=== PATIENT | female | born 1955 | race Caucasian/White ===

== ENCOUNTER 2019-02-02 21:41 | Emergency (ER) | payer MEDICAID ==
[~2019-02-02] VITALS: Ht 152.4 cm; Wt 58.0 kg
[~2019-02-02 21:41] MED LIST: ALBU8HFA PO; ATOR10TA87 PO; CETI10CA PO; CHOL100046 PO; CLOP75TA35 PO; DILT180C53 PO; LORA1TAB PO; MECL12.5 PO; METO100T7 PO; MOME13HF INH; NITR0.4T48 SL; OMEP20CA10 PO; PHE12.5T PO; PRED50TA PO; PROM25TA14 PO; TIZA4CAP6 PO; [UNRECOGNIZED DRUG - CODE] PO
--- NOTE | 2019-02-03 02:13 | NUR ---
Headache started yesterday morning at 1100. It has intensified. Started left frontal, now whole left side, nausea, vertigo and eyes feel like she is looking through wax paper. She said "it sibley." Tylenol and ibuprofen.
[2019-02-03] MEDS ORDERED: ketorolac tromethamine 15mg/ml inj. IM ONE (02:40)
[2019-02-03] MEDS ORDERED: proCHLORperazine 10mg tablet PO ONE (02:40)
[2019-02-03] MEDS ORDERED: diphenhydrAMINE 25mg capsule PO ONE (02:40)
[2019-02-03 02:51] VITALS: BP 133/74
== END 2019-02-03 02:52 | disposition home or self-care (01) ==
LOC: ER 21:42
DX: G43.909 Migraine, unspecified, not intractable, without status migrainosus (principal); I25.10 Atherosclerotic heart disease of native coronary artery without angina pectoris; I10 Essential (primary) hypertension; J44.9 Chronic obstructive pulmonary disease, unspecified; G89.29 Other chronic pain; Z98.890 Other specified postprocedural states; Z88.6 Allergy status to analgesic agent; Z88.8 Allergy status to other drugs, medicaments and biological substances; Z79.899 Other long term (current) drug therapy
CPT/HCPCS: 96372; 99283; J1885; Q0163; Q0164

== ENCOUNTER 2019-10-15 08:30 | Emergency (ER) | payer MEDICAID ==
[~2019-10-15] VITALS: Ht 152.4 cm; Wt 58.6 kg
[~2019-10-15 08:30] MED LIST changes: +OMEP-297 PO; -OMEP20CA10 PO; -PHE12.5T PO; +PROM12.510 PO
[2019-10-15 09:33] LABS: BASOPHILS % (AUTO) 0.6 % (0-1); EOSINOPHILS # (AUTO) 0.2 X10'3 (0-0.9); EOSINOPHILS % (AUTO) 3.1 % (0-6); HEMOGLOBIN 13.7 g/dl (12.0-16.0); LYMPHOCYTES # (AUTO) 2.4 X10'3 (1.1-4.8); LYMPHOCYTES % (AUTO) 34.4 % (21-51); MEAN CORPUSCULAR HEMOGLOBIN 27.4 PG (27.0-31.0); MEAN CORPUSCULAR HGB CONC 33.3 g/dL (33.0-36.5); MEAN CORPUSCULAR VOLUME 82.4 FL (78-98); MEAN PLATELET VOLUME 8.5 FL (7.4-10.4); MONOCYTES # (AUTO) 0.7 X10'3 (0-0.9); MONOCYTES % (AUTO) 9.4 % (2-12); NEUTROPHILS # (AUTO) 3.7 X10'3 (1.8-7.7); NEUTROPHILS % (AUTO) 52.5 % (42-75); PLATELET COUNT 283 X10'3 (140-440); RED BLOOD COUNT 4.98 X10'6 (4.20-5.60); RED CELL DISTRIBUTION WIDTH 14.4 % (11.5-14.5); WHITE BLOOD COUNT 7.1 X10'3 (4.5-11.0)
[2019-10-15 09:41] LABS: ALANINE AMINOTRANSFERASE 15 U/L (12-78); ALBUMIN 3.7 G/DL (3.4-5.0); ALBUMIN/GLOBULIN RATIO 1.1 (1.1-1.5); ALKALINE PHOSPHATASE 106 IU/L (46-116); ANION GAP 5 (8-16); ASPARTATE AMINO TRANSFERASE 15 U/L (10-37); BILIRUBIN,TOTAL 0.3 MG/DL (0.1-1.0); BLOOD UREA NITROGEN 8 MG/DL (7-18); CALCIUM 9.2 MG/DL (8.5-10.1); CHLORIDE 103 MMOL/L (99-107); CREATININE 0.89 MG/DL (0.40-0.90); GLUCOSE 120 MG/DL (70-104); POTASSIUM 3.8 MMOL/L (3.5-5.1); SODIUM 138 MMOL/L (135-145); TOTAL CARBON DIOXIDE 30.4 MMOL/L (24-32); TOTAL PROTEIN 7.1 G/DL (6.4-8.2); eGFR 64 ML/MIN
[2019-10-15] MEDS ORDERED: levoFLOXACIN 750MG TABLET PO ONE (10:05)
[2019-10-15] MEDS ORDERED: methylPREDNISolone sod succ 125mg/2ml vial IV ONE ×2 (10:05→10:25)
[2019-10-15] MEDS ORDERED: PRED20TA PO (10:06)
[2019-10-15] MEDS ORDERED: LEVO500T2 PO (10:06)
[2019-10-15] MEDS ORDERED: ALB0.5UD IH (10:06)
[2019-10-15] MEDS ORDERED: methylPREDNISolone sod succ 125mg/2ml vial IM ONE (10:25)
[2019-10-15 10:31] VITALS: BP 121/66
== END 2019-10-15 10:32 | disposition home or self-care (01) ==
LOC: ER 08:31
DX: J44.1 Chronic obstructive pulmonary disease with (acute) exacerbation (principal); I25.10 Atherosclerotic heart disease of native coronary artery without angina pectoris; I10 Essential (primary) hypertension; G89.29 Other chronic pain; Z98.890 Other specified postprocedural states; Z88.6 Allergy status to analgesic agent; Z88.8 Allergy status to other drugs, medicaments and biological substances; Z79.899 Other long term (current) drug therapy
CPT/HCPCS: 36415; 71045; 80053; 84484; 85025; 93005; 96372; 99284; J2930

== ENCOUNTER 2020-07-30 14:27 | Emergency (ER) | payer MEDICAID ==
[~2020-07-30] VITALS: Ht 152.4 cm; Wt 53.6 kg
[~2020-07-30 14:27] MED LIST changes: -OMEP-297 PO; +OMEP20CA15 PO
[2020-07-30] MEDS ORDERED: albuterol 2.5 MG/3 ML nebule CONTNEB PRN (16:05)
[2020-07-30 16:27] LABS: BASOPHILS % (AUTO) 0.3 % (0-1); EOSINOPHILS % (AUTO) 0.2 % (0-6); HEMATOCRIT 43.5 % (35.0-45.0); HEMOGLOBIN 14.1 g/dl (12.0-16.0); LYMPHOCYTES # (AUTO) 1.1 X10'3 (1.1-4.8); LYMPHOCYTES % (AUTO) 8.5 % (21-51); MEAN CORPUSCULAR HEMOGLOBIN 26.7 PG (27.0-31.0); MEAN CORPUSCULAR HGB CONC 32.4 g/dL (33.0-36.5); MEAN CORPUSCULAR VOLUME 82.6 FL (78-98); MEAN PLATELET VOLUME 7.6 FL (7.4-10.4); MONOCYTES # (AUTO) 0.3 X10'3 (0-0.9); MONOCYTES % (AUTO) 2.1 % (2-12); NEUTROPHILS # (AUTO) 11.4 X10'3 (1.8-7.7); NEUTROPHILS % (AUTO) 88.9 % (42-75); PLATELET COUNT 336 X10'3 (140-440); RED BLOOD COUNT 5.26 X10'6 (4.20-5.60); RED CELL DISTRIBUTION WIDTH 14.5 % (11.5-14.5); WHITE BLOOD COUNT 12.8 X10'3 (4.5-11.0)
--- NOTE | 2020-07-30 16:36 | NUR ---
DR. ARECHIGA AT BEDSIDE.
[2020-07-30] MEDS ORDERED: predniSONE 20 mg tablet PO ONE (16:40)
[2020-07-30] MEDS ORDERED: azithromycin 250mg tablet PO ONE (16:40)
[2020-07-30] MEDS ORDERED: AZIT-63 PO (16:42)
[2020-07-30] MEDS ORDERED: PRED20TA PO (16:42)
[2020-07-30 16:45] LABS: ALANINE AMINOTRANSFERASE 31 U/L (12-78); ALBUMIN 3.7 G/DL (3.4-5.0); ALKALINE PHOSPHATASE 117 IU/L (46-116); ANION GAP 7 (8-16); ASPARTATE AMINO TRANSFERASE 37 U/L (10-37); BILIRUBIN,TOTAL 0.3 MG/DL (0.1-1.0); BLOOD UREA NITROGEN 14 MG/DL (7-18); BUN/CREATININE RATIO 14.6 (6.6-38.0); CALCIUM 9.2 MG/DL (8.5-10.1); CHLORIDE 104 MMOL/L (99-107); CREATININE 0.96 MG/DL (0.40-0.90); GLUCOSE 126 MG/DL (70-104); POTASSIUM 4.6 MMOL/L (3.5-5.1); SODIUM 139 MMOL/L (135-145); TOTAL CARBON DIOXIDE 28.5 MMOL/L (24-32); TOTAL PROTEIN 7.4 G/DL (6.4-8.2); eGFR 59 ML/MIN
[2020-07-30 17:21] VITALS: BP 106/63
== END 2020-07-30 17:22 | disposition home or self-care (01) ==
LOC: ER 14:27
DX: J44.9 Chronic obstructive pulmonary disease, unspecified (principal); R06.02 Shortness of breath; I25.10 Atherosclerotic heart disease of native coronary artery without angina pectoris; I10 Essential (primary) hypertension; G89.29 Other chronic pain; Z86.69 Personal history of other diseases of the nervous system and sense organs; Z98.890 Other specified postprocedural states; Z88.8 Allergy status to other drugs, medicaments and biological substances; Z79.2 Long term (current) use of antibiotics; Z79.899 Other long term (current) drug therapy
CPT/HCPCS: 36415; 71045; 80053; 85025; 93005; 94640; 94644; 99285; J7512; 94760

== ENCOUNTER 2020-09-11 14:06 | Emergency (ER) | payer MEDICAID ==
[~2020-09-11] VITALS: Ht 152.4 cm; Wt 53.6 kg
[2020-09-11 14:17] VITALS: BP 147/79
[2020-09-11] MEDS ORDERED: ipratropium/albuterol 3ml nebule NEB ONE (14:30)
[2020-09-11 15:01] LABS: BASOPHILS # (AUTO) 0.2 X10'3 (0-0.2); BASOPHILS % (AUTO) 1.1 % (0-1); EOSINOPHILS # (AUTO) 0.3 X10'3 (0-0.9); EOSINOPHILS % (AUTO) 1.7 % (0-6); HEMATOCRIT 47.5 % (35.0-45.0); HEMOGLOBIN 15.7 g/dl (12.0-16.0); LYMPHOCYTES % (AUTO) 17.9 % (21-51); MEAN CORPUSCULAR HEMOGLOBIN 27.3 PG (27.0-31.0); MEAN CORPUSCULAR VOLUME 82.9 FL (78-98); MEAN PLATELET VOLUME 7.5 FL (7.4-10.4); MONOCYTES # (AUTO) 1.3 X10'3 (0-0.9); MONOCYTES % (AUTO) 7.9 % (2-12); NEUTROPHILS # (AUTO) 12.1 X10'3 (1.8-7.7); NEUTROPHILS % (AUTO) 71.4 % (42-75); PLATELET COUNT 333 X10'3 (140-440); RED BLOOD COUNT 5.73 X10'6 (4.20-5.60); RED CELL DISTRIBUTION WIDTH 14.9 % (11.5-14.5)
[2020-09-11 15:15] LABS: ALANINE AMINOTRANSFERASE 11 U/L (12-78); ALBUMIN/GLOBULIN RATIO 1.1 (1.1-1.5); ALKALINE PHOSPHATASE 117 IU/L (46-116); ANION GAP 5 (8-16); ASPARTATE AMINO TRANSFERASE 14 U/L (10-37); BILIRUBIN,TOTAL 0.3 MG/DL (0.1-1.0); BLOOD UREA NITROGEN 13 MG/DL (7-18); BUN/CREATININE RATIO 13.8 (6.6-38.0); CALCIUM 9.4 MG/DL (8.5-10.1); CHLORIDE 104 MMOL/L (99-107); CREATININE 0.94 MG/DL (0.40-0.90); GLUCOSE 90 MG/DL (70-104); POTASSIUM 4.2 MMOL/L (3.5-5.1); SODIUM 140 MMOL/L (135-145); TOTAL CARBON DIOXIDE 30.6 MMOL/L (24-32); TOTAL PROTEIN 7.6 G/DL (6.4-8.2); eGFR 60 ML/MIN
--- NOTE | 2020-09-11 15:44 | NUR ---
pt has been on antibotic z-pack and steroids for 10day, stopped 1113. and pt started feeling worse last night
[2020-09-11] MEDS ORDERED: albuterol 2.5 MG/3 ML nebule CONTNEB PRN (15:55)
[2020-09-11] MEDS ORDERED: AZIT-31 PO (16:01)
[2020-09-11] MEDS ORDERED: PRED20TA PO (16:01)
== END 2020-09-11 16:50 | disposition home or self-care (01) ==
LOC: ER 14:07
DX: J44.1 Chronic obstructive pulmonary disease with (acute) exacerbation (principal); I25.10 Atherosclerotic heart disease of native coronary artery without angina pectoris; I10 Essential (primary) hypertension; Z88.6 Allergy status to analgesic agent; Z88.8 Allergy status to other drugs, medicaments and biological substances; Z79.899 Other long term (current) drug therapy
CPT/HCPCS: 36415; 71045; 80053; 83880; 84484; 85025; 93005; 94640; 99285